=== PATIENT | female | born 1955 | race Caucasian/White ===

== ENCOUNTER 2020-08-28 13:09 | Day surgery (SDC) | payer MEDICARE, BC ==
[~2020-08-28] VITALS: Ht 157.5 cm; Wt 100.0 kg
[2020-08-28] MEDS ORDERED: DIPHENHYDRAMINE 50 MG/ML, 1ML ONE (14:57)
[2020-08-28] MEDS ORDERED: LIDOCAINE-MPF 1%, 5ML ONE (14:58)
[2020-08-28] MEDS ORDERED: BIVALIRUDIN 250 MG ONE (14:58)
[2020-08-28] MEDS ORDERED: FENTANYL PF 100 MCG/2ML ONE (14:58)
[2020-08-28] MEDS ORDERED: VERAPAMIL 2.5 MG/ML, 2ML ONE (14:58)
[2020-08-28] MEDS ORDERED: HEPARIN 1,000 UNITS/ML, 10ML ONE (14:59)
[2020-08-28] MEDS ORDERED: MIDAZOLAM 1 MG/ML, 2ML ONE (14:59)
[2020-08-28] MEDS ORDERED: SODIUM CHLORIDE 0.9% 1,000 ML IV SCH ×2 (15:00→16:30)
[2020-08-28] MEDS ORDERED: DIPHENHYDRAMINE 50 MG/ML, 1ML IVPush ONE (15:00)
[2020-08-28 15:09] LABS: BASOPHILS % (AUTO) 1 % (0-1); EOSINOPHILS % (AUTO) 2 % (1-7); LYMPHOCYTES % (AUTO) 15 % (22-44); MEAN CORPUSCULAR HGB CONC 32.4 g/dL (32.4-35.8); MEAN PLATELET VOLUME 8.5 fL (7.4-10.4); MONOCYTES % (AUTO) 10 % (2-9); NEUTROPHILS % (AUTO) 73 % (42-75); PLATELET COUNT 193 x10^3/uL (130-400); RED BLOOD COUNT 4.49 x10^6/uL (3.82-5.3); RED CELL DISTRIBUTION WIDTH 20.8 % (9.6-15.2)
[2020-08-28] MEDS ORDERED: INSU100V8 SQ (15:12)
[2020-08-28] MEDS ORDERED: ASCO500T93 PO (15:12)
[2020-08-28] MEDS ORDERED: ATOR40TA78 PO (15:12)
[2020-08-28] MEDS ORDERED: GABA300C PO (15:12)
[2020-08-28] MEDS ORDERED: METO25TA35 PO (15:12)
[2020-08-28] MEDS ORDERED: METF500T17 PO (15:12)
[2020-08-28] MEDS ORDERED: INSU100C SQ-INSULIN (15:12)
[2020-08-28] MEDS ORDERED: ACET-1600 PO (15:12)
[2020-08-28] MEDS ORDERED: FURO40TA6 PO (15:12)
[2020-08-28] MEDS ORDERED: SERT-331 PO (15:12)
[2020-08-28] MEDS ORDERED: ASPI81TA45 PO (15:12)
[2020-08-28] MEDS ORDERED: OMEP-110 PO (15:12)
[2020-08-28] MEDS ORDERED: LOSA100T14 PO (15:12)
[2020-08-28] MEDS ORDERED: CHOL10003 PO (15:12)
[2020-08-28 15:20] LABS: ANION GAP 5 mmol/L (5-15); CHLORIDE 105 mmol/L (98-107); CREATININE 0.84 mg/dL (0.55-1.02)
[2020-08-28 15:30] LABS: <PLATELET ESTIMATE> ADEQUATE; <PLT MORPHOLOGY> NORMAL PLT MORPH; ANISOCYTOSIS 1+; OVALOCYTES 1+; POLYCHROMASIA 1+
[2020-08-28 17:28] VITALS: BP 178/70
[2020-08-28 19:19] VITALS: BP 178/78
[2020-08-28 19:35] VITALS: BP 181/78
[2020-08-28] MEDS ORDERED: METOPROLOL TARTRATE 50 MG TAB PO ONE (19:47)
[2020-08-28] MEDS: hydrALAzine 20 MG/ML, 1ML IV PRN ×2 (19:57→20:52)
[2020-08-28 20:51] VITALS: BP 176/70
== END 2020-08-28 22:15 | disposition home or self-care (01) ==
LOC: CACL 13:09 → 5SO 17:09 → CACL 22:15
PROVIDERS: ATTEND Internal Medicine Cardiovascular Disease
DX: R06.02 Shortness of breath (principal); I11.0 Hypertensive heart disease with heart failure; I27.9 Pulmonary heart disease, unspecified; I50.32 Chronic diastolic (congestive) heart failure; E11.9 Type 2 diabetes mellitus without complications; E66.3 Overweight; Z68.41 Body mass index [BMI] 40.0-44.9, adult; Z79.899 Other long term (current) drug therapy; Z88.8 Allergy status to other drugs, medicaments and biological substances
CPT/HCPCS: 36415; 80048; 82803; 83880; 85025; 93456; 99156; 99157; C1769; C1894; J0360; J0583; J1200; J1644; J2250; J3010; Q9967; G0378